=== PATIENT | male | born 1980 | race Caucasian/White ===

== ENCOUNTER → 2016-10-15 | Outpatient (CLI) | payer OTHER ==
[~2016-10-15] MED LIST: IBUP200T5 PO
[2016-10-15 15:48] LABS: BLOOD UREA NITROGEN 26 mg/dL (7-18)
== END | disposition home or self-care (01) ==
LOC: STAR 14:46
PROVIDERS: ATTEND Neurological Surgery
DX: Z01.818 Encounter for other preprocedural examination (principal); M51.26 Other intervertebral disc displacement, lumbar region; Z98.890 Other specified postprocedural states
CPT/HCPCS: 36415; 71020; 80048; 85025; 85610; 85730; 93005

== ENCOUNTER 2016-10-30 11:02 | Inpatient (IN) | payer OTHER ==
[2016-10-15 15:35] VITALS: BP 142/96
[~2016-10-30] VITALS: Ht 193 cm; Wt 136.6 kg
[~2016-10-30 11:02] MED LIST changes: +BACITRACIN 50,000 UNIT ONE; +BUPIVACAINE/PF-EPI 0.5% 1:200K ONE; +DEXAMETHASONE 4 MG/ML, 1ML ONE; +GLYCOPYRROLATE 0.2MG/1ML ONE; +NEOSTIGMINE 1 MG/ML, 10ML ONE; +ONDANSETRON 2MG/ML, 2ML ONE; +PROPOFOL 10 MG/ML, 20ML ONE; +ROCURONIUM 10 MG/ML ONE; +SUCCINYLCHOLINE 20 MG/ML, 10ML ONE; +THROMBIN 5,000 UNIT VIAL TP ONE
[2016-10-30] MEDS ORDERED: LACTATED RINGERS 1,000 ML IV SCH (11:26)
[2016-10-30] MEDS ORDERED: LIDOCAINE 1%, 2ML ONE (11:54)
[2016-10-30] MEDS ORDERED: LIDOCAINE 1%, 2ML SQ PRN (12:30)
[2016-10-30] MEDS ORDERED: FENTANYL PF 250 MCG/5ML ONE (12:30)
[2016-10-30] MEDS ORDERED: MIDAZOLAM 1 MG/ML, 2ML ONE (12:30)
[2016-10-30] MEDS ORDERED: CLINDAMYCIN 150 MG/ML, 6ML ONE (13:47)
[2016-10-30] MEDS ORDERED: METOPROLOL 1 MG/ML, 5ML IV PRN (14:30)
[2016-10-30] MEDS ORDERED: FENTANYL PF 100 MCG/2ML IV PRN (14:30)
[2016-10-30] MEDS ORDERED: ACETAMINOPHEN 325 MG TABLET PO PRN (14:30)
[2016-10-30] MEDS ORDERED: OXYcodone 5 MG/5 ML ORAL.SOL UDC PO PRN (14:30)
[2016-10-30] MEDS ORDERED: MEPERIDINE/PF 25MG/0.5ML IVPush PRN (14:30)
[2016-10-30] MEDS ORDERED: ALBUTEROL SULFATE 2.5 MG/3 ML NPPB PRN (14:30)
[2016-10-30] MEDS ORDERED: EPHEDRINE 50 MG/ML, 1ML IVPush PRN (14:30)
[2016-10-30] MEDS ORDERED: MIDAZOLAM 1 MG/ML, 2ML IV PRN (14:30)
[2016-10-30] MEDS ORDERED: ONDANSETRON 2MG/ML, 2ML IVPush PRN (14:30)
[2016-10-30] MEDS ORDERED: PROMETHAZINE 25 MG/ML, 1ML IV PRN (14:30)
[2016-10-30] MEDS ORDERED: hydrALAzine 20 MG/ML, 1ML IV PRN (14:30)
[2016-10-30] MEDS ORDERED: LABETALOL 5MG/ML, 20ML IV PRN (14:30)
[2016-10-30] MEDS ORDERED: HYDROmorphone 1 MG/ML, 1ML ONE (15:37)
[2016-10-30] MEDS ORDERED: ACETAMINOPHEN 650 MG/20.3 ML UDC ONE (15:37)
[2016-10-30] MEDS ORDERED: OXYcodone 5 MG/5 ML ORAL.SOL UDC ONE (15:38)
[2016-10-30] MEDS ORDERED: PROMETHAZINE 25 MG/ML, 1ML ONE (15:38)
[2016-10-30] MEDS: HYDROmorphone 1 MG/ML, 1ML IV PRN ×2 (15:58→16:05)
[2016-10-30] MEDS ORDERED: PROMETHAZINE 25 MG/ML, 1ML IM PRN (17:30)
[2016-10-30] MEDS ORDERED: MAGNESIUM HYDROXIDE 8%, 30ML UDC PO PRN (17:30)
[2016-10-30] MEDS ORDERED: morphine SULFATE 10 MG/ML, 1ML IV PRN (17:30)
[2016-10-30] MEDS ORDERED: ONDANSETRON 2MG/ML, 2ML IV PRN (17:30)
[2016-10-30] MEDS ORDERED: NS + 20MEQ KCL 1,000 ML IV SCH (18:00)
[2016-10-30] MEDS ORDERED: METHOCARBAMOL 1,000 MG in DEXTROSE 5% 100 ML IV ONE (18:00)
[2016-10-30 19:31] VITALS: BP 104/61
[2016-10-30] MEDS: OXYcodone/APAP 10/325MG TABLET PO PRN ×2 (21:14→21:56)
[2016-10-30] MEDS: SENNA/DOCUSATE TABLET PO SCH (21:51)
[2016-10-31 00:17] VITALS: BP 133/79
[2016-10-31] MEDS: OXYcodone/APAP 10/325MG TABLET PO PRN ×2 (01:50→05:58)
[2016-10-31] MEDS ORDERED: METHOCARBAMOL 750 MG in DEXTROSE 5% 100 ML IV SCH (02:00)
[2016-10-31 05:14] VITALS: BP 116/76
[2016-10-31 06:50] VITALS: BP 110/77
[2016-10-31] MEDS ORDERED: HYDROmorphone 1 MG/ML, 1ML IV ONE (09:00)
[2016-10-31] MEDS: SENNA/DOCUSATE TABLET PO SCH (09:00)
[2016-10-31] MEDS ORDERED: OXYC-229 PO (09:20)
[2016-10-31] MEDS ORDERED: METH750T87 PO (09:21)
[2016-10-31] MEDS ORDERED: SENN1TAB7 PO (09:22)
[2016-11-02] MEDS ORDERED: METHOCARBAMOL 750 MG TABLET PO SCH (02:00)
== END 2016-10-31 09:35 | disposition home or self-care (01) | DRG 520 ==
LOC: OUT 11:02 → 4NOR 17:17 → OUT 17:22 → 4NOR 17:23 → DCLOUNGE 10-31 09:10
PROVIDERS: ADMIT Neurological Surgery; ATTEND Neurological Surgery
PROC: 01NB0ZZ Release Lumbar Nerve, Open Approach (ICD-10-PCS; 2016-10-30)
PROC: 0SB20ZZ Excision of Lumbar Vertebral Disc, Open Approach (ICD-10-PCS; principal; 2016-10-30 13:30)
DX: M51.16 Intervertebral disc disorders with radiculopathy, lumbar region (principal); Z88.1 Allergy status to other antibiotic agents
CPT/HCPCS: 72100; J1100; J1170; J2250; J2405; J2550; J2704; J2710; J3010; J3480; J3490; J0330; J2270; J2800; J7120